=== PATIENT | male | born 1950 | race Caucasian/White ===

== ENCOUNTER 2019-05-02 11:24 | Inpatient (IN) | payer MEDICARE, BC ==
--- NOTE | 2019-05-02 11:47 | ED ---
HPI Chest Pain - HPI Summary HPI Summary: This patient is a 69 year old male presenting to [facility] with a chief complaint of chest tightness 1 hour ago. He states he had just worked out at the gym and he arrived home and started to shovel snow when he started to experience a squeezing pain in his chest. He reports nausea and skin diaphoresis. He states the pain is at his mid sternum Pt denies any fever, chills, erythema of eyes, sore throat, SOB, cough, abdominal pain, vomiting, dysuria, hematuria, myalgia, edema, rash, or dizziness. He states a Family Hx of DC in his father at 55 and 2 uncles younger than 55. He is concerned due to his family Hx. He rates his current pain 2/10 in severity. He states the pain does not radiate. He has a Hx of HTN and HLD. He states he was in [place] a week ago and states he had a GI bug up until a few days ago. His states he was walking slower on the treadmill today than usual. - History of Current Complaint Chief Complaint: EDChestPainROMI Time Seen by Provider: 05/02/19 11:43 Hx Obtained From: Patient Onset/Duration: Started Hours Ago Timing: Lasting Minutes Pain Intensity: 0 Character: Pressure/Squeezing Associated Signs and Symptoms: Positive: Nausea - Allergy/Home Medications Allergies/Adverse Reactions: Allergies Allergy/AdvReac Type Severity Reaction Status Date / Time No Known Allergies Allergy Verified 05/02/19 11:32 Home Medications: Home Medications Glucosam/Chondr/Collagn/Hyalur [Glucosamine & Chondroitin Cap] 1 each PO DAILY 05/02/19 [History Confirmed 05/02/19] Naproxen Sodium [Aleve] 220 mg PO DAILY PRN 05/02/19 [History Confirmed 05/02/19 ] PMH/Surg Hx/FS Hx/Imm Hx Endocrine/Hematology History: Denies: Hx Diabetes Cardiovascular History: Reports: Hx Hypercholesterolemia, Hx Hypertension - Immunization History Date of Tetanus Vaccine: 07/03/18 Infectious Disease History: No Infectious Disease History: Denies: Traveled Outside the [place] in Last 30 Days - Family History Known Family History: Positive: Cardiac Disease - Social History Alcohol Use: None Hx Substance Use: No Substance Use Type: Reports: None Hx Tobacco Use: No Smoking Status (MU): Unknown if Ever Smoked Review of Systems Positive: Skin Diaphoresis. Negative: Fever, Chills Negative: Erythema Negative: Sore Throat Positive: Chest Pain Negative: Shortness Of Breath, Cough Positive: Nausea. Negative: Abdominal Pain, Vomiting Negative: dysuria, hematuria Negative: Myalgia, Edema Negative: Rash Neurological: Other - Neg: Dizziness All Other Systems Reviewed And Are Negative: No Physical Exam - Summary Physical Exam Summary: Constitutional: Well-developed, Well-nourished, Alert. (-) Distressed Skin: Warm, Dry HENT: Normocephalic; Atraumatic Eyes: Conjunctiva normal Neck: Musculoskeletal ROM normal neck. (-) JVD, (-) Stridor, (-) Tracheal deviation Cardio: Rhythm regular, rate normal, Heart sounds normal; Intact distal pulses; Radial pulses are 2+ and symmetric. (-) Murmur Pulmonary/Chest wall: Effort normal. (-) Respiratory distress, (-) Wheezes, (-) Rales Abd: Soft, (-) tenderness, (-) Distension, (-) Guarding, (-) Rebound Musculoskeletal: (-) Edema Lymph: (-) Cervical adenopathy Neuro: Alert, Oriented x3 Psych: Mood and affect Normal Triage Information Reviewed: Yes Vital Signs On Initial Exam: Initial Vitals Temp Pulse Resp BP Pulse Ox 97.6 F 66 16 153/80 98 05/02/19 11:31 05/02/19 11:31 05/02/19 11:31 05/02/19 11:31 05/02/19 11:31 Vital Signs Reviewed: Yes Procedures - Sedation Patient Received Moderate/Deep Sedation with Procedure: No Diagnostics - Vital Signs Vital Signs Temp Pulse Resp BP Pulse Ox 05/02/19 11:31 97.6 F 66 16 153/80 98 - Laboratory Result Diagrams: 05/02/19 11:43 05/02/19 11:43 Lab Statement: Any lab studies that have been ordered have been reviewed, and results considered in the medical decision making process. - EKG 1128 Cardiac Rate: NL - 66 BPM EKG Rhythm: Sinus Rhythm Summary of EKG Findings: Inferior, septal and anterior Q-waves. ED Physician has reviewed and interpreted this report. Chest Pain Course/Dx - Course Course Of Treatment: This patient is a 69 year old male presenting to [facility] with a chief complaint of chest tightness. HEART Score calculated to be 7. Physical exam was unremarkable. Labs were unremarkable except for Creatinine of 1.42 H and Glucose of 137 H. EKG revealed Q-waves in the inferior, septal, and anterior leads. Dr. Cristina, Hospitalist, accepted the patient for admission observation overnight. This plan was discussed with the patient and he was agreeable with this plan. - Diagnoses Provider Diagnoses: Unstable angina Discharge ED - Sign-Out/Discharge Documenting (check all that apply): Patient Departure - Admission - Discharge Plan Condition: Stable Disposition: ADMITTED TO [facility] Referrals: Ishaan Tay MD [Primary Care Provider] - - Attestation Statements Document Initiated by Scribe: Yes Documenting Scribe: Tristan Guevara Provider For Whom Scribe is Documenting (Include Credential): Richy Hairston MD Scribe Attestation: Tristan Lozano, scribed for Richy Hairston MD on 05/02/19 at 1246. Status of Scribe Document: Ready
[2019-05-02] MEDS ORDERED: Nitroglycerin TAB 0.4 MG* 0.4 MG TAB SL ONE (11:54)
[2019-05-02] MEDS ORDERED: Aspirin TAB* 325 MG PO ONE (11:54)
[2019-05-02 11:58] LABS: ABS Basophils 0.1 10^3/ul (0-0.2); ABS Eosinophils 0.1 10^3/ul (0-0.6); ABS Lymphocytes 1.9 10^3/ul (1.0-4.8); ABS Monocytes 0.6 10^3/ul (0-0.8); ABS Neutrophils 3.3 10^3/ul (1.5-7.7); Hematocrit 44 % (42-52); Hemoglobin 15.2 g/dL (14.0-18.0); Lymphocyte % 32.5 %; Mean Corpuscular HGB Conc 34 g/dL (31-36); Mean Corpuscular Hemoglobin 30 pg (27-31); Mean Corpuscular Volume 88 fL (80-94); Mean Platelet Volume 8.5 fL (7.4-10.4); Platelet Count 223 10^3/uL (150-450); Red Blood Count 5.01 10^6 /uL (4.18-5.48); Red Cell Distribution Width 14 % (10-15); White Blood Count 5.9 10^3/uL (3.5-10.8)
[2019-05-02 12:09] LABS: Albumin 4.3 g/dL (3.2-5.2); Albumin/Globulin Ratio 1.6 (1-3); BUN/Creatinine Ratio 13.4 (8-20); Calcium 9.3 mg/dL (8.6-10.3); EGFR African American 59.5 (>60); EGFR Non-African American 49.1 (>60); Globulin 2.7 g/dL (2-4); Potassium 3.6 mmol/L (3.5-5.0); Total Bilirubin 0.7 mg/dL (0.2-1.0)
[2019-05-02] MEDS ORDERED: NS 0.9% 1000 ML** 1,000 ML IV ONE (12:24)
[2019-05-02] MEDS ORDERED: Morphine 4 MG/ML VIAL (1 ml) 4 MG/ML VIAL IV ONE (12:24)
[2019-05-02] MEDS ORDERED: Ondansetron INJ* 2 MG/ML VIAL IV ONE (12:24)
[2019-05-02] MEDS ORDERED: Ondansetron INJ* 2 MG/ML VIAL ONE (12:24)
[2019-05-02 12:33] LABS: INR 1.02 (0.82-1.09)
[2019-05-02] MEDS ORDERED: Aspirin 81 mg CHEW TAB* 81 MG TAB.CHEW PO ONE (13:00)
[2019-05-02] MEDS ORDERED: Atorvastatin* 80 MG TAB PO ONE (13:10)
[2019-05-02] MEDS ORDERED: Aspirin 81 mg CHEW TAB* 81 MG TAB.CHEW PO STA (13:43)
[2019-05-02] MEDS ORDERED: Al Hydrox/Mg Hydrox/Simet LIQ* 30 ML UDC PO ONE (13:47)
[2019-05-02] MEDS ORDERED: Metoprolol Tartrate TAB* 25 MG PO SCH ×2 (14:00→19:00)
[2019-05-02] MEDS ORDERED: Ondansetron INJ* 2 MG/ML VIAL IV PRN (14:00)
[2019-05-02 15:34] LABS: Troponin I 0.06 ng/mL (<0.03)
--- NOTE | 2019-05-02 16:43 | ECHO ---
*[facility]* [place] [address] Fax #: [phone] Transthoracic Echocardiogram Patient: Christopher Jorgensen : 1950 Study Date: 05/02/2019 Age: 69 Gender: M HR: 65 bpm Height: 72 in /182.9 cm BSA: 2.13 m^2 Weight: 194.6 lb /88.5 kg BMI: 26.4 kg/m^2 *Youth Coordinator: * Ginny Blanco [facility] *Referring Physician: * Paulo Cristina *Reading Physician: * Mando Dyer MD Indications: Chest Pain, unspecified. History: Positive family history of CAD. Risk factors: Hypertension. Dyslipidemia. Conclusions Summary: - Left ventricle: The cavity size is normal. Wall thickness is mildly increased. Systolic function is normal. The estimated ejection fraction is 60-65%. Wall motion is normal; there are no regional wall motion abnormalities. - Right ventricle: The cavity size is normal. Systolic function is normal. Systolic pressure is mildly increased. - Left atrium: The atrium is normal in size. - Ascending aorta: The ascending aorta is mildly dilated. - No significant valvular abnormalities noted. Recommendations: None prior for comparison at time of interpretation Study data: Transthoracic echocardiogram. Procedure: Transthoracic echocardiography was performed. Image quality was good. Complete 2D, spectral Doppler, and color flow Doppler. Location: Bedside. Patient status: Inpatient. Patient room number: 432. Rhythm: Normal sinus rhythm with PVC's. Findings Left ventricle: The cavity size is normal. Wall thickness is mildly increased. Systolic function is normal. The estimated ejection fraction is 60-65%. Wall motion is normal; there are no regional wall motion abnormalities. Left ventricular diastolic function parameters are indeterminate. Right ventricle: The cavity size is normal. Systolic function is normal. Systolic pressure is mildly increased. Left atrium: The atrium is normal in size. Right atrium: The atrium is normal in size. Mitral valve: The leaflets are mildly thickened. There is no evidence of stenosis. There is mild regurgitation. Aortic valve: The valve is trileaflet. The leaflets are mildly thickened. There is no evidence of stenosis. There is no significant regurgitation. Tricuspid valve: The leaflets are normal thickness. There is no evidence of stenosis. There is trace to mild regurgitation. Pulmonic valve: The leaflets are normal thickness. There is no evidence of stenosis. There is trace regurgitation. Aorta: Aortic root: The aortic root is appears normal. Ascending aorta: The ascending aorta is mildly dilated. Aortic arch: The aortic arch is appears normal. Pericardium: There is no significant pericardial effusion. Pulmonary arteries: The main pulmonary artery is normal-sized. Systolic pressure is mildly increased. Systemic veins: Inferior vena cava: The vessel is normal in size. There is (>= 50%) respiratory change in the IVC dimension. Measurements Left ventricle Value Ref Right atrium Value Ref NITA, LAX 4.5 cm 4.2 - SI dim, ES 4.7 cm 3.4 - 5.3 5.8 ML dim, ES, A4C 3.8 cm 2.6 - 4.4 ESD, LAX 3.1 cm 2.5 - Estimated RAP 3 mm Hg --------- 4.0 FS, LAX 31 % Aortic valve Value Ref PW, ED, LAX (H) 1.1 cm 0.6 - Orion diam, S 2.3 cm 2.0 - 3.2 1.0 Peak v, S 1.33 m/sec --------- FS 31 % VTI, S 29.5 cm --------- PW, ED (H) 1.1 cm 0.6 - Mean grad, S 3.5 mm Hg --------- 1.0 Peak grad, S 7.1 mm Hg --------- E', lat orion, TDI 10.0 cm/sec >=10.0 LVOT/AV, VTI ratio 0.76 --- ------ E/e', lat orion, TDI 11 -------- E', med orion, TDI 9.0 cm/sec >=7.0 Mitral valve Value Ref E/e', med orion, TDI 13 -------- Peak E 1.15 m/sec ------ --- E', avg, TDI 9.5 cm/sec -------- Peak A 1.04 m/sec ------ --- E/e', avg, TDI 12 <=14 Decel time 230 ms --- ------ Peak grad, D 5.3 mm Hg --------- LVOT Value Ref Peak E/A ratio 1.11 --------- Peak patria, S 1.05 m/sec -------- VTI, S 22.4 cm -------- Tricuspid valve Value Ref Peak grad, S 4 mm Hg -------- TR peak v (H) 2.91 m/sec <=2.8 Mean grad, S 2 mm Hg -------- Peak RV-RA grad, S 34 mm Hg --------- Ventricular septum Value Ref Aortic root Value Ref IVS, ED (H) 1.2 cm 0.6 - Root diam 3.3 cm <4.2 1.0 Ascending aorta Value Ref Right ventricle Value Ref AAo AP diam, S 3.7 cm --------- AW thickness, ED (H) 0.6 cm 0.1 - 0.5 Aortic arch Value Ref AW thickness, ES 0.6 cm -------- Arch diam 2.8 cm --------- NITA, LAX 3.8 cm -------- NITA minor ax, A4C (H) 3.8 cm 1.9 - Pulmonary artery Value Ref mid 3.5 Pressure, S 37.0 mm Hg --------- Pressure, S 37 mm Hg -------- Inferior vena cava Value Ref Left atrium Value Ref Diam 1.6 cm --------- LA ID 3.7 cm -------- ML dim, A4C 4.0 cm -------- SI dim, A4C 4.1 cm -------- Vol, ES, 2-p 46 ml -------- Vol/bsa, ES, 2-p 21 ml/m^2 16 - 34 Legend: (L) and (H) allan values outside specified reference range. Prepared and electronically signed by Mando Dyer MD 05/02/2019 16:42
--- NOTE | 2019-05-02 18:17 | HP ---
HISTORY AND PHYSICAL: DATE OF ADMISSION: 05/02/19 ADMITTING PROVIDER: Paulo Cristina MD PRIMARY CARE PROVIDER: Dr. Ishaan Tay. CHIEF COMPLAINT: Chest pressure, nausea, vomiting, shortness of breath. 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 He went to the gym for "the second time in his adult life" the morning of admission and did series of upper body exercises including abdominal twists, pectoral flexion, press, and rowing/lat machine." He then joined his for a short time on the treadmill, but walked at a slower than usual pace given fatigue at approximately 20 minutes per mile compared to his usual 17. He felt nauseous and sweaty on the ride home, then did some shoveling of snow, but quickly developed some tightness in his chest. This was around between 10:15 and 10:30 a.m. on morning of admission. They waited about 15 minutes, it was not getting better and in fact was getting a little bit worse. Sensation was about 3/10, felt like constriction in his lower chest with no radiation, but accompanied with shortness of breath. On car ride over to the emergency room, he vomited in a car. Here at [facility], his initial troponin was 0.0. He had an EKG, which showed some Q waves in III, aVF, V1, V2, V3, similar sort of distribution to his last known EKG in 2005. He got nitroglycerin sublingual once, but his blood pressures dropped to the low 100s and he got bradycardic to either the high 40s or low 50s and vomited again and vomited up the aspirin that he had been given. He was referred to the hospitalist service for admission given his HEART score of approximately 7, for ACS rule out. He still has about 2/10 discomfort, but says "markedly improved" from the 3/10 that was at its worse. The shortness of breath resolved in the last 30 minutes. Back in approximately 2005, he developed episode of chest pain and was eventually referred as an outpatient by his PCP at that time, Dr. Lr, to get a coronary catheterization at [facility] which was reportedly to his knowledge clean of any significant coronary artery disease. The pain back then was slightly sharper than it is now. He does have a known hiatal hernia and has pretty severe GERD if he is not on chronic PPI therapy - H2 blockers were not effective. PAST MEDICAL HISTORY: Hypertension; hyperlipidemia; GERD; at least moderate- sized hiatal hernia back in 2010; BPH; JELANI, not requiring CPAP, but uses a mouthguard. FAMILY HISTORY: Includes early cardiac deaths in his father at age 55, paternal uncle at age 52, another paternal uncle at age 46 and his paternal grandfather at less than age 60. His mother at age 80 of multiple myeloma. He has 5 sisters, all younger and healthy. He has 2 sons, age 34 and 36 also healthy. SOCIAL HISTORY: The patient is a former smoker between years 1965 and 1973, averaging about one and a half packs per day, so about 12 pack years. He is a frequent drinker of Scotch approximately 4 a day. No other drug use. 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 He desires to be a full code. His medical surrogate is his , also a veterinary surgeon, Snow Jorgensen. REVIEW OF SYSTEMS: A complete 14-point review of systems is negative except as per HPI. Denies any headache, current stomach discomfort or nausea, fevers, or chills. He does have a slight laceration at his left fifth finger, he says he is not exactly sure what happened there but it happened about 2 to 3 days ago. They recently returned from [place] flight and he had some diarrhea and stomach cramps for about 4 days total which resolved about 3 days ago. Denies any cough , fevers, or chills. PHYSICAL EXAMINATION GENERAL APPEARANCE: No acute distress. VITAL SIGNS: Temperature 97.6, pulse rate 60s to 70s, respiratory rate 13 to 28 , blood pressure initially 153/80, dropped down to 91/60 and is currently 139/ 78. HEENT: Normocephalic, atraumatic. Pupils are equal, round and reactive to light. Extraocular motions intact. No scleral icterus. LUNGS: Clear to auscultation bilaterally with no wheezing, rales, or rhonchi. CARDIOVASCULAR: Regular rate and rhythm. No murmurs, rubs, or gallops. ABDOMEN: Soft, nontender, nondistended. No organomegaly or guarding. EXTREMITIES: Warm, well perfused. No peripheral edema. NEURO: Cranial nerves II through XII intact. Alert and oriented x3. SKIN: No lesions, no rashes, other than 1-cm laceration in his left fifth finger with no drainage or erythema. DIAGNOSTIC STUDIES/LAB DATA: White count 5.9, hemoglobin 15.2, hematocrit 44, platelets 223. INR 1.02. Sodium 137, potassium 3.6, chloride 104, carbon dioxide 25, BUN 19, creatinine 1.42, glucose 137. Total bili 0.7, AST 21, ALT 25, alk phos 44. Troponin 0.00. D-dimer less than 200. Imaging: None. EKG demonstrated normal sinus rhythm; Q waves in II, aVF, V1 through V3; T-wave flattening in V1; left anterior fascicular block; GA is 215; QTc is 414; QRS is 112. No ST elevations or depressions. ASSESSMENT AND PLAN: Christopher Jorgensen is a 69-year-old male with past medical history of moderate hiatal hernia, hypertension, hyperlipidemia, gastroesophageal reflux disease, prediabetes with significant paternal family history of early coronary artery disease, presenting after initiation of upper body and cardiovascular workout at a gym for only second time in his adult life with substernal pressure, shortness of breath and some diaphoresis and no radiation. Initial troponin is 0.0. Given his HEART score of 7, he will be admitted to the hospital for further evaluation, acute coronary syndrome rule out. I am getting echocardiogram. Stress test is likely in the morning depending on clinical course. I am starting him on a low dose of beta-sarah, metoprolol tartrate 12.5 mg p.o. q.12 hours given his reported bradycardia with nitroglycerin which will be avoided. He is relatively comfortable appearing at the moment. I am also going to give him atorvastatin 80 mg now and in the morning, aspirin 324 mg p.o. again repeated now because he says most likely he vomited it up initially and also the 81 mg he took at home was vomited up and continue 81 mg daily tomorrow. I will give him a GI cocktail with aluminum hydroxide, magnesium hydroxide and simethicone along with continuing his PPI tomorrow, Protonix 40 mg p.o. daily. I will put him on telemetry. I will keep him n.p.o. except for sips and meds for now. His last LDL was 92 with HDL of 65 back on 03/14/19. His A1c was 6.1 on 03/14/19. For his hypertension, I am holding his hydrochlorothiazide 12.5 and amlodipine 10 mg p.o. daily for now. Could consider amlodipine restart tomorrow. He did initially get 1 L normal saline bolus after he was hypotensive in the ED. Along with Zofran, we will continue Zofran p.r.n. He is full code. Medical surrogate is his , Snow Jorgensen. [id number]/[facility] #: [id number] MTDArelis
[2019-05-02 18:40] LABS: Troponin I 1.16 ng/mL (<0.03)
[2019-05-02] MEDS ORDERED: Heparin VIAL(*) 5000 UNITS/ML VIAL (FIVE THOUSAND) IV SCH (19:30)
[2019-05-02] MEDS ORDERED: Heparin DRIP 25,000 UNITS(*) 25,000 UNITS/500 ML BAG IV SCH (19:30)
[2019-05-02 20:59] LABS: Magnesium 2.1 mg/dL (1.9-2.7)
[2019-05-02 21:06] LABS: Troponin I 2.74 ng/mL (<0.03)
[2019-05-02] MEDS: Metoprolol Tartrate TAB* 25 MG PO SCH (23:28)
[2019-05-03] MEDS ORDERED: Nitro 2% OINT* (Nitroglycerin) 1 INCH/PAK PAK TOPICAL ONE (00:46)
[2019-05-03] MEDS ORDERED: Potassium Chloride* LIQUID 20 MEQ/15 ML UDC PO ONE (00:48)
[2019-05-03 01:51] LABS: Troponin I 6.04 ng/mL (<0.03)
[2019-05-03 05:25] LABS: ABS Basophils 0.1 10^3/ul (0-0.2); ABS Eosinophils 0.1 10^3/ul (0-0.6); ABS Lymphocytes 1.8 10^3/ul (1.0-4.8); ABS Monocytes 0.8 10^3/ul (0-0.8); ABS Neutrophils 5.6 10^3/ul (1.5-7.7); Eosinophil % 0.9 %; Hematocrit 43 % (42-52); Hemoglobin 14.7 g/dL (14.0-18.0); Lymphocyte % 21.9 %; Mean Corpuscular HGB Conc 34 g/dL (31-36); Mean Corpuscular Hemoglobin 30 pg (27-31); Mean Corpuscular Volume 89 fL (80-94); Mean Platelet Volume 8.5 fL (7.4-10.4); Nucleated Red Blood Cells % 0.1; Platelet Count 225 10^3/uL (150-450); Red Blood Count 4.86 10^6 /uL (4.18-5.48); Red Cell Distribution Width 14 % (10-15); White Blood Count 8.4 10^3/uL (3.5-10.8)
[2019-05-03 05:45] LABS: BUN/Creatinine Ratio 11.3 (8-20); Calcium 8.9 mg/dL (8.6-10.3); EGFR Non-African American 49.5 (>60); Potassium 3.7 mmol/L (3.5-5.0)
[2019-05-03 05:56] LABS: Troponin I 9.97 ng/mL (<0.03)
[2019-05-03] MEDS ORDERED: Nitro Patch/OINT Remove TOPICAL ONE (06:30)
[2019-05-03] MEDS ORDERED: Ticagrelor* 90 MG TAB PO STA (07:12)
[2019-05-03] MEDS ORDERED: NS 0.9% 1000 ML** 1,000 ML IV SCH (07:45)
[2019-05-03] MEDS: Metoprolol Tartrate TAB* 25 MG PO SCH (08:22)
--- NOTE | 2019-05-03 08:40 | CONSULT ---
Subjective Date of Service: 05/03/19 Interval History: Admission Date: 05/02/19 Consult date 05/03/2019 Service: Hospitalist PCP Dr. Tay CC: chest pain Reason for consult: Type 1 VA, NSVT HPI Dr. 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 He had chest pain 10 or 12 years ago with subsequent cardiac catheterization at [facility] was told no issues. I do not have that report. He has had no chest pain since then. After exercise and now shoveling yesterday he developed nausea, sweating, chest discomfort and later vomiting. He had a hypotensive and bradycardic response to SL NTG. He received treatment for ACS yesterday and is now pain free. He had a 23 beat episodes of NSVT overnight. He a chronically mildly elevated creatinine. 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 Family hx: early cardiac deaths in his father at age 55, paternal uncle at age 52, another paternal uncle at age 46 and his paternal grandfather at less than age 60. SOCIAL HISTORY: The patient is a former smoker between years 1965 and 1973, averaging about one and a half packs per day. Drinks wine and scotch about 4 a day. No drug use. 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 He desires to be a full code. Medications Active Medications: Amlodipine Besylate (Norvasc Tab*) 10 mg PO DAILY [facility] Last Admin: 05/03/19 08:22 Dose: 10 mg Aspirin (Aspirin 81 Mg Chew Tab*) 81 mg PO DAILY [facility] Last Admin: 05/03/19 08:22 Dose: 81 mg Atorvastatin Calcium (Lipitor*) 80 mg PO 1700 [facility] Heparin Sodium (Porcine) (Heparin Vial(*)) 0 units IV .PER PROTOCOL [facility] Last Admin: 05/02/19 21:08 Dose: 4,000 units Heparin Sodium/Dextrose (Heparin Drip 25,000 Units(*)) 25,000 units in 500 mls @ 0 mls/hr IV PER RATE [facility]; Protocol Last Admin: 05/02/19 21:08 Dose: 20 mls/hr Sodium Chloride (Ns 0.9% 1000 Ml) 1,000 mls @ 100 mls/hr IV PER RATE [facility] Metoprolol Tartrate (Lopressor Tab*) 25 mg PO 0730,1530,2330 [facility] Last Admin: 05/03/19 08:22 Dose: 25 mg Ondansetron HCl (Zofran Inj*) 4 mg IV Q6H PRN PRN Reason: NAUSEA Last Admin: 05/03/19 01:26 Dose: 4 mg Pantoprazole Sodium (Protonix Tab*) 40 mg PO DAILY [facility] Last Admin: 05/03/19 08:23 Dose: 40 mg Tamsulosin HCl (Flomax Cap*) 0.4 mg PO DAILY [facility] Home Medications: Omeprazole CAP (NF) [PriLOSEC CAP*] 20 mg PO DAILY 11/12/14 [History Confirmed 05/02/19] amLODIPine TAB* [Norvasc TAB*] 10 mg PO DAILY 11/12/14 [History Confirmed ] Atorvastatin* [Lipitor*] 20 mg PO BEDTIME 07/03/18 [History Confirmed 05/02/19] Hydrochlorothiazide TAB* [Hydrodiuril TAB*] 12.5 mg PO DAILY 07/03/18 [History Confirmed 05/02/19] Tamsulosin CAP* [Flomax CAP*] 0.4 mg PO DAILY 07/03/18 [History Confirmed ] Glucosam/Chondr/Collagn/Hyalur [Glucosamine & Chondroitin Cap] 1 each PO DAILY 05/02/19 [History Confirmed 05/02/19] Naproxen Sodium [Aleve] 220 mg PO DAILY PRN 05/02/19 [History Confirmed 05/02/19 ] Review of Systems - Measurements Intake and Output: Intake and Output Last 24 Hours 05/01/19 05/02/19 05/03/19 05/04/19 06:59 06:59 06:59 06:59 Intake Total 1189 Output Total 0 Balance 1189 Weight 195 lb 9.6 oz Intake: IV Fluids 1000 Heparin 189 Oral 0 Output: Urine 0 - Review of Systems Constitutional Symptoms: Negative: Weight Gain, Weight Loss, Weakness, Fatigue, Fever Dermatology: Negative: Rash, Skin Lesions HEENT: Negative: Change in Hearing, Vertigo Eyes: Negative: Change in Vision, Double Vision Thyroid: Negative: Cold Intolerance, Heat Intolerance, Palpitations, Weight Loss, Weight Gain Pulmonary: Negative: Respiratory Distress, Shortness of Breath Cardiology: Positive: Chest Pain Negative: Edema, Faintness, Syncope, Claudication, Paroxysmal Nocturnal Dyspnea Gastroenterology: Positive: Vomiting Negative: Blood in Stools, Haematemesis, Melena Genital - Urinary: Negative: Dysuria, Hematuria Musculoskeletal: Negative: Joint Pain, Joint Stiffness Endocrinology: Positive: Obesity Negative: Polydipsia, Polyuria Hematologic/Lymphatic: Negative: Use of Anticoagulant, Use of Antiplatelet Drugs Neurology: Negative: Hx of Stroke\TIA, Hx Seizures Psychiatry: Negative: Unusual Anxiety, Suicidal Ideation Allergic/Immunologic: Negative: Hx Anaphylaxis, Hx Angioedema, Hx HIV, Immunocompromise Review of Systems Statement: All other review of systems negative, unless stated above. Objective Vital Signs: Temp Pulse Resp BP Pulse Ox 97.9 F 62 14 128/68 94 05/03/19 07:43 05/03/19 07:43 05/03/19 07:43 05/03/19 07:43 05/03/19 07:43 Oxygen Devices in Use Now: None Appearance: nad, pleasant Ears/Nose/Mouth/Throat: Clear Oropharnyx Neck: NL Appearance and Movements; NL JVP, Trachea Midline Respiratory: Symmetrical Chest Expansion and Respiratory Effort, Clear to Auscultation Cardiovascular: NL Sounds; No Murmurs; No JVD, RRR, No Edema Abdominal: NL Sounds; No Tenderness; No Distention Extremities: No Edema Skin: No Rash or Ulcers Neurological: Alert and Oriented x 3 Laboratory Results: 05/03/19 05:10 05/03/19 05:10 INR (Anticoag Therapy) 1.02 (0.82-1.09) 05/02/19 11:43 APTT 75.9 seconds (26.0-38.0) H 05/03/19 03:40 Total Bilirubin 0.70 mg/dL (0.2-1.0) 05/02/19 11:43 AST 21 U/L (13-39) 05/02/19 11:43 ALT 25 U/L (7-52) 05/02/19 11:43 Alkaline Phosphatase 44 U/L (34-104) 05/02/19 11:43 Total Protein 7.0 g/dL (6.4-8.9) 05/02/19 11:43 Albumin 4.3 g/dL (3.2-5.2) 05/02/19 11:43 Globulin 2.7 g/dL (2-4) 05/02/19 11:43 Albumin/Globulin Ratio 1.6 (1-3) 05/02/19 11:43 05/02/19 05/02/19 05/02/19 11:43 14:48 18:07 Troponin I 0.00 0.06 H* 1.16 H* 05/02/19 05/03/19 05/03/19 20:35 00:54 05:10 Troponin I 2.74 H* 6.04 H* 9.97 H* 03/21/2019 [id number] 6.1 tri 86, tchol 174, hdl 65, ldl 92 Diagnostic Imaging: Transthoracic Echocardiogram Study Date: 05/02/2019 Summary: - Left ventricle: The cavity size is normal. Wall thickness is mildly increased. Systolic function is normal. The estimated ejection fraction is 60-65 %. Wall motion is normal; there are no regional wall motion abnormalities. - Right ventricle: The cavity size is normal. Systolic function is normal. Systolic pressure is mildly increased. - Left atrium: The atrium is normal in size. - Ascending aorta: The ascending aorta is mildly dilated. - No significant valvular abnormalities noted. EKG Data: ekg 05/02/2019 NSR, poor r wave progression LAD 05/03/2019 similar to admission, some subtle inferior st segemnt changes Assessment/Plan Dr. Jorgensen is a 69 year old man admitted with acute type 1 VA, now pain free with normal LVEF no CHF or hemodynamic instability. Patient had NSVT on telemetry - Continue medications as ordered above except add brillinta 180 mg po x 1 and start IVF (ordered) - Cardiac catheterization with intent for revascularization indicated and recommended. Risks, benefits and alternatives discussed and patient wishes to proceed. Discussed with Dr. Vega. Thank you for allowing me to participate in the cardiovascular care of this patient. Please do not hesitate to contact me with questions or concerns.
[2019-05-03] MEDS ORDERED: Heparin(*) 1000 UNIT/ML 10 ML VIAL CATH LAB IV ONE (08:44)
[2019-05-03] MEDS ORDERED: fentaNYL* 50 MCG/ML 2 ML VIAL (100 MCG VIAL) ONE (08:44)
[2019-05-03] MEDS ORDERED: Midazolam* 1 MG/ML 5 ML VIAL (5 MG) ONE (08:44)
[2019-05-03] MEDS ORDERED: VERAPAMIL 2.5 MG/ML 2 ML VIAL ** 5 mg/2 ml ONE (08:44)
[2019-05-03] MEDS ORDERED: Heparin 2 UNITS/ML IVPREMIX* 2,000 ML IV ONE (08:45)
[2019-05-03] MEDS ORDERED: Lidocaine 1% INJ* 10 MG/ML 30 ML SDV ONE (08:45)
[2019-05-03] MEDS ORDERED: nitroGLYCERIN DRIP* 25,000 MCG/250 ML BTL ONE (08:45)
[2019-05-03] MEDS ORDERED: Iohexol 350 (CONTRAST) 200 ML MDV IV ONE (08:46)
[2019-05-03] MEDS ORDERED: amLODIPine TAB* 5 MG PO SCH (09:00)
[2019-05-03] MEDS ORDERED: Pantoprazole TAB * 40 MG TAB PO SCH (09:00)
[2019-05-03] MEDS ORDERED: Iodixanol 320 (CONTRAST) 100 ML SDV ONE (09:00)
[2019-05-03] MEDS ORDERED: Aspirin 81 mg CHEW TAB* 81 MG TAB.CHEW PO SCH (09:00)
[2019-05-03] MEDS ORDERED: Tamsulosin CAP* 0.4 MG PO SCH (09:00)
--- NOTE | 2019-05-03 09:10 | PN ---
Subjective Date of Service: 05/03/19 Interval History: pt has had no CP since admission. An episode of 23 beats of V. tach noted. Going to cath in a few minutes Objective Active Medications: Amlodipine Besylate (Norvasc Tab*) 10 mg PO DAILY [facility] Last Admin: 05/03/19 08:22 Dose: 10 mg Aspirin (Aspirin 81 Mg Chew Tab*) 81 mg PO DAILY [facility] Last Admin: 05/03/19 08:22 Dose: 81 mg Atorvastatin Calcium (Lipitor*) 80 mg PO 1700 [facility] Heparin Sodium (Porcine) (Heparin Vial(*)) 0 units IV .PER PROTOCOL [facility] Last Admin: 05/02/19 21:08 Dose: 4,000 units Heparin Sodium/Dextrose (Heparin Drip 25,000 Units(*)) 25,000 units in 500 mls @ 0 mls/hr IV PER RATE [facility]; Protocol Last Admin: 05/02/19 21:08 Dose: 20 mls/hr Sodium Chloride (Ns 0.9% 1000 Ml) 1,000 mls @ 100 mls/hr IV PER RATE [facility] Metoprolol Tartrate (Lopressor Tab*) 25 mg PO 0730,1530,2330 [facility] Last Admin: 05/03/19 08:22 Dose: 25 mg Ondansetron HCl (Zofran Inj*) 4 mg IV Q6H PRN PRN Reason: NAUSEA Last Admin: 05/03/19 01:26 Dose: 4 mg Pantoprazole Sodium (Protonix Tab*) 40 mg PO DAILY [facility] Last Admin: 05/03/19 08:23 Dose: 40 mg Tamsulosin HCl (Flomax Cap*) 0.4 mg PO DAILY [facility] Vital Signs - 8 hr 05/03/19 05/03/19 05/03/19 02:19 03:12 07:43 Temperature 98.5 F 97.2 F 97.9 F Pulse Rate 62 63 62 Respiratory 16 16 14 Rate Blood Pressure 132/75 136/77 128/68 (mmHg) O2 Sat by Pulse 96 96 94 Oximetry Oxygen Devices in Use Now: None Appearance: 69 yo m in nAD, AAOx3 Eyes: No Scleral Icterus, PERRLA Ears/Nose/Mouth/Throat: NL Teeth, Lips, Gums, Mucous Membranes Moist Neck: NL Appearance and Movements; NL JVP, Trachea Midline Respiratory: Symmetrical Chest Expansion and Respiratory Effort, Clear to Auscultation Cardiovascular: NL Sounds; No Murmurs; No JVD, RRR Abdominal: NL Sounds; No Tenderness; No Distention Lymphatic: No Cervical Adenopathy Extremities: No Edema, No Clubbing, Cyanosis Skin: No Rash or Ulcers, No Nodules or Sclerosis Neurological: Alert and Oriented x 3, NL Muscle Strength and Tone Result Diagrams: 05/03/19 05:10 05/03/19 05:10 Assess/Plan/Problems-Billing Assessment: 69 yo M with h/o HTN, prediabetes and CKD stage 3 with NSTEMI - Patient Problems (1) NSTEMI (non-ST elevated myocardial infarction) Comment: for cath this aM Cont ASA/Brilinta, heparin gtt, BB (2) HTN (hypertension) Comment: cont with Norvasc and lopressor (3) DVT prophylaxis Comment: heparin gtt (4) CKD (chronic kidney disease) stage 3, GFR 30-59 ml/min Comment: creat at baseline Status and Disposition: inpatient
[2019-05-03 09:27] LABS: HDL Cholesterol 51.4 mg/dL
[2019-05-03 11:10] VITALS: BP 132/78
--- NOTE | 2019-05-03 12:11 | CATH ---
CC: Dr. Ishaan Tay III; Dr. Mando Dyer, [facility]; Dr. Mando Collier, [facility], [facility] * DATE OF PROCEDURE: 05/03/2019. INDICATION FOR PROCEDURE: Asked by Dr. 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 PROCEDURE PERFORMED: The procedure was coronary arteriography. (Of note, the patient had an echocardiogram already performed to assess left ventricular systolic function and has a known history of renal insufficiency.) CONSENT: The patient was interviewed and examined on the floor of the hospital where the risks and benefits were explained. He and his understood them and wished to proceed. APPROACH UTILIZED: The right radial artery was assessed under ultrasound on the floor of the hospital and found to be acceptable for an approach and as such this was the site utilized for the procedure. PRECARDIAC CATHETERIZATION LABORATORY RESULTS: Hemoglobin and hematocrit of 14.7 and 43 with a platelet count of 225,000. BUN 16, creatinine 1.4, sodium 137, potassium 3.7, chloride 104, bicarb 26. Last troponin was 9.97. EQUIPMENT UTILIZED: 1. Right radial artery sheath - a 6 Maldivian Glidesheath Slender. 2. Diagnostic guidewire: A Cook Palma Curved 260 length guidewire. 3. Diagnostic coronary catheters - included a FL4 curve left coronary catheter and an RF4 curve right coronary catheter. Of note, a multipurpose one curve catheter was utilized to cannulate the ectopic circumflex off of the right coronary artery. MEDICATIONS GIVEN DURING THE PROCEDURE: Included, a radial artery cocktail of 100 mcg of Nitroglycerin, 3 mg of Verapamil, and a Heparin bolus of 3,000 units. Additional 3,000 units of Heparin were given intravenously during the procedure, guided by ACT results which were done throughout the procedure, including at the end of the case. The patient had already received Brilinta 180 mg on the floor of the hospital and his 81 mg aspirin dose this morning. PROCEDURE: The patient was brought to the cardiovascular laboratory where a formal time-out was performed. He was prepped and draped in a sterile fashion and under ultrasound guidance, the right radial artery was cannulated and a sheath was placed. Coronary arteriography was performed, eventually utilizing a 5-Maldivian FL4 curve catheter for the left coronary artery and an FR4 curve 5- Maldivian catheter for the right coronary artery. A 5-Maldivian multipurpose one curve catheter was utilized to cannulate the circumflex. The ectopic take off of the circumflex from the right coronary artery. Following this, the catheters were removed and the sheath was removed and hemostasis was obtained with a Vasc Band. The reverse Barbeau was josafat Breaux. RESULTS: CORONARY ARTERIOGRAPHY: A. Left coronary artery: 1. Left main - somewhat long in nature suggesting possible ectopic circumflex. There was calcification seen in the mid segment of the left main with luminal reduction of approximately 25 to 30 percent. The first diagonal branch was posterior directed and was noted to have an ectopic critical 85 to 90 percent lesion with HENOK III flow. Past this point, there was the first septal grain wafer machine operator followed by a hazy area after which was an aneurysmal area in the LAD. The haze area appeared in several views to have a narrowing of approximately 35 percent. After the haze area, there was what appeared to be a critically 85 to 90 percent blockage involving a medial vessel which parallel the continuation of the LAD. It is unclear whether the medial vessel is intramyocardial. That medial vessel supplied a first septal grain wafer machine operator and other septal perforators. There was diffuse disease with a 70 percent blockage noted proximally. The continuation of the more lateral branch supplied multiple diagonal branches, the first of which had a 70 to 75 percent ostial narrowing. The second one had no significant lesion, but in the continuation of the vessel past that point, there was an area of 70 percent obstruction noted. B. Right coronary artery - a dominant vessel supplying multiple acute marginal branches, a large PDA, and a large posterior left ventricular branch. There were mild luminal irregularities noted and just prior to turning on to the inferior surface of the heart was a mild narrowing that appeared to be 30 to 35 percent. The mid portion of the posterior descending artery had what appeared to be a 35 to 40 percent obstruction. The posterior left ventricular branch did not seem to have any significant narrowing. C. Ectopic takeoff of circumflex from the right coronary artery. The circumflex took off from the right coronary artery either at the cusp or at the very beginning portion of the right coronary artery. There was subtotal occlusion of this vessel with thrombus present. Past this area, there was HENOK I to II flow noted extending across the posterior wall. (Of note, there appeared to be faint collateralization from the left system developing to the circumflex obtuse marginal branch noted, particularly in the shallow JAMAICAN caudal projection.) OVERALL ASSESSMENT: Significant multivessel coronary artery disease involving the LAD system as well as the ectopic circumflex as described above. Given the aneurysmal dilatation of the LAD, the size mismatch, the diffuse disease in multiple areas , and the bifurcating lesion, I would think open heart surgery with bypass to both the parallel vessels as well as the first diagonal branch and probably the second diagonal branch and third diagonal branch and circumflex obtuse marginal branch would provide complete revascularization. These results were discussed with Dr. Mando Dyer who then reportedly placed a phone call to Dr. Mando Collier as the family preference was to go to [facility] if any advanced therapy was needed. Per Dr. Dyer' s request, we will continue the Heparin therapy on the patient. It should be noted that the patient did get 180 mg of Brilinta orally prior to the cardiac catheterization as ordered by Dr. Dyer. [id number]/[facility] #: [id number] [facility]
--- NOTE | 2019-05-03 12:20 | TRS ---
CC: Dr. Mando Collier from [facility]; Dr. Vega; Dr. Mando Dyer; Dr. Tay* TRANSFER SUMMARY: DATE OF ADMISSION: 05/02/19 DATE OF TRANSFER: 05/03/19 PRIMARY CARE PROVIDER: Dr. Tay. CONDITION AT TRANSFER: Stable. DISPOSITION AT DISCHARGE: The patient is being transferred to [facility] for evaluation for coronary artery bypass. TRANSFER DIAGNOSIS: Non-ST elevation myocardial infarction with diffuse left anterior descending disease, likely need of bypass. SECONDARY DIAGNOSES: 1. Hypertension. 2. Hyperlipidemia. 3. Gastroesophageal reflux disease. 4. History of hiatal hernia. 5. Benign prostatic hyperplasia. 6. Obstructive sleep apnea, not on CPAP, using mouthguard. 7. Chronic kidney disease, stage 3 with creatinine of 1.4 at baseline. MEDICATIONS AT TRANSFER: Include: 1. Normal saline at 100 mL an hour. 2. Nitroglycerin 0.4 mg sublingually on a p.r.n. basis for chest pain to use maximum 3 tablets and to keep systolic blood pressure above 100. PROCEDURES DURING THE HOSPITAL STAY: Include cardiac catheterization done on by Dr. Vega. From the verbal report I received from Dr. 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 The patient also has ectopic circumflex artery rising of RCA cusp that is subtotally occluded. LABORATORY DATA DURING THE HOSPITAL STAY: Included on , white blood cell count of 8.4, hemoglobin 14.7, hematocrit 43, and platelets 225. Sodium was 136, potassium 3.7, chloride 104, carbon dioxide 29, BUN 16, creatinine 1.41. The patient's troponin last was obtained at 5 a.m. on was 9.9. The patient's lipid profile shows triglycerides of 65, cholesterol total of 116, LDL of 52, and HDL of 51. The transthoracic echocardiogram obtained on 05/03/19 showed EF of 60% to 65% with wall thickness mildly increased with no regional wall abnormalities and with no significant valvular abnormalities noted. The ascending aorta was mildly dilated. CONSULTATIONS DURING THE HOSPITAL STAY: Included Dr. Dyer from Cardiology and Dr. Vega from Interventional Cardiology. 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 There were no significant EKG changes, but he was noted to have troponin rising throughout his hospital stay up to 9 on . Due to that his cardiac catheterization was performed and showed diffuse disease of LAD. Dr. Vega recommended for the patient to be transferred to [facility] and Dr. Collier was the doctor who kindly accepted the patient for transfer. Currently we are in the process of transfer of this patient to [facility]. Physical exam at the time of transfer, please see the ED progress note. Please note that this is a short summary of the patient's hospitalization. Please refer to further medical records for details. [id number]/[facility] #: [id number] ADDENDUM TO TRANSFER SUMMARY: ADDENDUM: Please note that the patient also is being transferred on heparin drip and his heparin drip is going to be at 800 units per hour during his transfer. [id number]/[facility] #: [id number] [facility]
[2019-05-03] MEDS ORDERED: Atorvastatin* 80 MG TAB PO SCH (17:00)
--- NOTE | 2019-05-03 19:55 | TRS ---
TRANSFER SUMMARY: ADDENDUM: Please note that the patient also is being transferred on heparin drip and his heparin drip is going to be at 800 units per hour during his transfer. [id number]/[facility] #: [id number] [facility]
== END 2019-05-03 12:02 | disposition short-term general hospital (02) | DRG 281 ==
LOC: ED 11:24 → MEDTELE 13:09 → OBSVTOIN 05-03 10:00
PROVIDERS: ADMIT Internal Medicine; ATTEND Internal Medicine
PROC: B2111ZZ Fluoroscopy of Multiple Coronary Arteries using Low Osmolar Contrast (ICD-10-PCS; principal; 2019-05-03 09:00)
DX: I21.4 Non-ST elevation (NSTEMI) myocardial infarction (principal); I47.2 Ventricular tachycardia; E78.00 Pure hypercholesterolemia, unspecified; E78.5 Hyperlipidemia, unspecified; I25.41 Coronary artery aneurysm; N40.0 Benign prostatic hyperplasia without lower urinary tract symptoms; G47.33 Obstructive sleep apnea (adult) (pediatric); K44.9 Diaphragmatic hernia without obstruction or gangrene; R00.1 Bradycardia, unspecified; I12.9 Hypertensive chronic kidney disease with stage 1 through stage 4 chronic kidney disease, or unspecified chronic kidney disease; N18.3 Chronic kidney disease, stage 3 (moderate); I25.10 Atherosclerotic heart disease of native coronary artery without angina pectoris; Z87.891 Personal history of nicotine dependence
CPT/HCPCS: 36415; 76937; 80048; 80053; 80061; 83735; 84484; 85025; 85347; 85379; 85610; 85730; 93005; 93306; 93454; 96374; 96375; 99284; A9270-GY; G0378; J1644; J2250; J2405; J3010

== ENCOUNTER 2019-07-07 10:03 | Observation (INO) | payer MEDICARE, BC ==
--- NOTE | 2019-07-07 10:15 | ED ---
Syncope/Near Syncope - HPI Summary HPI Summary: 69 y/o male presented to [facility] by [facility] after an episode of syncope this morning in [facility]. Pt was standing during a service and began feeling hot, lightheaded, and dizzy. LOC for 3 separate episodes of about 10 seconds in which he was unresponsive, bradycardic, and appeared ashen. Afterward pt felt nauseous and dry heaved; no CP or SOB. Pt had a similar episode yesterday in which he nearly passed out with lower than normal BP. His BP is chronically high (150-170). In the last 4-5 days he has had more respiratory sx and reported lower energy as well as cold sx. He also felt dizzy at a basketball game 2 days ago. Pt has a sextouple bypass on 05/06/19 and since surgery has had HR 50-60bpm. He had a stress test on 06/30/19 and has a follow-up on . Pt reports taking dextromethorphan and metoprolol. No hx blood clots, DM, or smoking. Pt notes he feels normal when exercising and notes he becomed severely bradycardic in response to NTG. - History Of Current Complaint Time Seen by Provider: 07/07/19 10:14 Hx Obtained From: Patient, Family/Loan Review Officer, EMS Onset/Duration: Sudden Onset, Resolved Timing: Intermittent Episode Lasting - 10s Context: Witnessed Activity At Onset: At Rest Associated Signs And Symptoms: Dizzy, Lightheadedness, Vomiting - dry heaving, Other - feeling hot Frequency: Episodes x___ - 3, Episodes Lasting ____ (in Mins/Days/Weeks/Years) - 10s - Allergies/Home Medications Allergies/Adverse Reactions: Allergies Allergy/AdvReac Type Severity Reaction Status Date / Time nitroglycerin Allergy See Comment Verified 07/07/19 10:14 Home Medications: Home Medications Omeprazole CAP (NF) [PriLOSEC CAP*] 20 mg PO DAILY 11/12/14 [History Confirmed 07/07/19] Atorvastatin* [Lipitor*] 80 mg PO BEDTIME 07/03/18 [History Confirmed 07/07/19] Hydrochlorothiazide TAB* [Hydrodiuril TAB*] 12.5 mg PO DAILY 07/03/18 [History Confirmed 07/07/19] Tamsulosin CAP* [Flomax CAP*] 0.4 mg PO DAILY 07/03/18 [History Confirmed ] Glucosam/Chondr/Collagn/Hyalur [Glucosamine & Chondroitin Cap] 1 each PO BID [History Confirmed 07/07/19] Aspirin 81 mg PO DAILY 07/07/19 [History Confirmed 07/07/19] Lisinopril TAB* [Prinivil TAB 5 MG*] 5 mg PO DAILY 07/07/19 [History Confirmed 07/07/19] Metoprolol Tartrate [Lopressor] 25 mg PO BID 07/07/19 [History Confirmed ] PMH/Surg Hx/FS Hx/Imm Hx Endocrine/Hematology History: Denies: Hx Diabetes Cardiovascular History: Reports: Hx Hypercholesterolemia, Hx Hypertension Sensory History: Reports: Hx Contacts or Glasses Denies: Hx Hearing Aid Opthamlomology History: Reports: Hx Contacts or Glasses Neurological History: Denies: Hx Seizures, Hx Transient Ischemic Attacks (TIA) - Immunization History Date of Tetanus Vaccine: 07/03/18 - Family History Known Family History: Positive: Cardiac Disease - Social History Alcohol Use: Rare Hx Substance Use: No Substance Use Type: Reports: None Hx Tobacco Use: No Smoking Status (MU): Unknown if Ever Smoked Review of Systems Positive: Other - bradycardic. Negative: Chest Pain Negative: Shortness Of Breath Positive: Vomiting - dry heaving, Nausea Positive: Other - ashen during episode Neurological/Mental Status: Other - dizziness, lightheadedness Positive: Syncope All Other Systems Reviewed And Are Negative: Yes Physical Exam - Summary Physical Exam Summary: Constitutional: Well-developed, Well-nourished, Alert. (-) Distressed Skin: Warm, Dry HENT: Normocephalic; Atraumatic Eyes: Conjunctiva normal Neck: Musculoskeletal ROM normal neck. (-) JVD, (-) Stridor, (-) Tracheal deviation Cardio: Rhythm regular, bradycardic, Heart sounds normal; Intact distal pulses; The pedal pulses are 2+ and symmetric. Radial pulses are 2+ and symmetric. (-) Murmur Pulmonary/Chest wall: Effort normal. (-) Respiratory distress, (-) Wheezes, (-) Rales Abd: Soft, (-) tenderness, (-) Distension, (-) Guarding, (-) Rebound Musculoskeletal: (-) Edema Lymph: (-) Cervical adenopathy Neuro: Alert, Oriented x3 Psych: Mood and affect Normal Triage Information Reviewed: Yes Vital Signs Reviewed: Yes Procedures - Sedation Patient Received Moderate/Deep Sedation with Procedure: No Diagnostics - Laboratory Result Diagrams: 07/07/19 10:32 07/07/19 10:32 Lab Statement: Any lab studies that have been ordered have been reviewed, and results considered in the medical decision making process. - Radiology cxr Radiology Interpretation Completed By: Radiologist Summary of Radiographic Findings: IMPRESSION: NO ACTIVE CARDIOPULMONARY DISEASE. This report was reviewed by Dr. Pelletier. - EKG 1010 Cardiac Rate: Bradycardia EKG Rhythm: Sinus Bradycardia Summary of EKG Findings: EKG at 1010 shows sinus bradycardia at 50bpm. T-wave inversions in avL. This EKG was reviewed and interpreted by Dr. Pelletier. Course/Dx Course Of Treatment: 69 y/o male presented to [facility] by [facility] after an episode of syncope this morning in [facility]. Pt was standing during a service and began feeling hot, lightheaded, and dizzy. LOC for 3 separate episodes of about 10 seconds in which he was unresponsive, bradycardic, and appeared ashen. Afterward pt felt nauseous and dry heaved; no CP or SOB. Exam showed bradycardia. Bloodwork showed BUN H, creatinine H, and glucose H. EKG at 1010 shows sinus bradycardia at 50bpm. T-wave inversions in avL. X-ray chest showed NO ACTIVE CARDIOPULMONARY DISEASE. Pt was given 1L IV NaCl. At 1021 Pt case was discussed with Dr. Ortiz, who will see the pt in the ER. At 1029 Dr. Ortiz recommended admission. At 1120 Dr. De Leon accepted the pt for admission. - Diagnoses Provider Diagnoses: Syncope, Bradycardia, sinus - Physician Notifications Discussed Care of Patient With: Narendra Ortiz Time Discussed With Above Provider: 10:21 Instructed by Provider To: Other - Pt case was discussed with Dr. Ortiz, who will see the pt in the ER. At 1029 Dr. Ortiz recommended admission. At 1120 Dr. De Leon accepted the pt for admission. Discharge ED - Sign-Out/Discharge Documenting (check all that apply): Patient Departure - admit - Discharge Plan Condition: Stable Disposition: ADMITTED TO [facility] Referrals: Ishaan Tay MD [Primary Care Provider] - - Billing Disposition and Condition Condition: STABLE Disposition: Admitted to [facility] - Attestation Statements Document Initiated by Todd: Yes Documenting Scribe: Jose Manuel Glez Provider For Whom Todd is Documenting (Include Credential): Teddy Pelletier DO Scribe Attestation: Jose Manuel Lozano scribed for Teddy Pelletier DO on 07/07/19 at 1245. Scribe Documentation Reviewed: Yes Provider Attestation: The documentation as recorded by the kevibadolph, Jose Manuel Glez accurately reflects the service I personally performed and the decisions made by Teddy bryant DO Status of Scribadolph Document: Viewed
[2019-07-07] MEDS ORDERED: NS 0.9% 1000 ML** 1,000 ML IV ONE (10:18)
[2019-07-07 10:45] LABS: ABS Basophils 0.1 10^3/ul (0-0.2); ABS Eosinophils 0.1 10^3/ul (0-0.6); ABS Lymphocytes 1.7 10^3/ul (1.0-4.8); ABS Monocytes 0.7 10^3/ul (0-0.8); ABS Neutrophils 5.9 10^3/ul (1.5-7.7); Eosinophil % 1.3 %; Hematocrit 44 % (42-52); Hemoglobin 14.7 g/dL (14.0-18.0); Lymphocyte % 19.6 %; Mean Corpuscular HGB Conc 34 g/dL (31-36); Mean Corpuscular Hemoglobin 29 pg (27-31); Mean Corpuscular Volume 87 fL (80-94); Mean Platelet Volume 9.3 fL (7.4-10.4); Platelet Count 192 10^3/uL (150-450); Red Blood Count 4.99 10^6 /uL (4.18-5.48); Red Cell Distribution Width 15 % (10-15); White Blood Count 8.4 10^3/uL (3.5-10.8)
[2019-07-07 11:02] LABS: Albumin 4.3 g/dL (3.2-5.2); Albumin/Globulin Ratio 1.5 (1-3); BUN/Creatinine Ratio 17.2 (8-20); Calcium 9.3 mg/dL (8.6-10.3); EGFR African American 58.1 (>60); Globulin 2.8 g/dL (2-4); Potassium 4.5 mmol/L (3.5-5.0); Total Bilirubin 0.7 mg/dL (0.2-1.0); Total Protein 7.1 g/dL (6.4-8.9)
[2019-07-07 11:04] LABS: Troponin I 0.01 ng/mL (<0.03)
[2019-07-07] MEDS ORDERED: Acetaminophen TAB* 325 MG PO PRN (12:30)
--- NOTE | 2019-07-07 13:53 | HP ---
CC: Dr. Tay; Dr. Ortiz, Cardiology * HISTORY AND PHYSICAL: DATE OF ADMISSION: 07/07/19 PRIMARY CARE PROVIDER: Dr. Tay. CHIEF COMPLAINT: Passing out. HISTORY OF PRESENT ILLNESS: Christopher Jorgensen is a 69-year-old male with history of recent coronary artery bypass grafting that was a 6-vessel bypass in April of 2019. Post surgery, the patient was placed on a new medication metoprolol and his Lipitor dose was increased. He stated that he had been doing okay until approximately 2 weeks ago when he had an episode where he has gotten lightheaded when he was walking up the stairs. He also stated that yesterday when he was in a hot tub he was walking out of it and he also felt lightheaded. Today, he was standing in a restorationist and at the end of the service he started feeling hot, clammy/diaphoretic and lightheaded. Subsequently, he lowered himself to the restorationist pew, he sat down and passed out for a few seconds. When he came about, he saw people standing over him and asking if he is okay and then he passed out a couple more times when he was sitting up in a restorationist pew. He stated that he did not have any chest pain or shortness of breath. When he came into the emergency department, his heart rate was noted to be in the 40s. He likely has symptomatic bradycardia and he is going to be placed on overnight observation with a diagnosis of syncope and bradycardia. PAST MEDICAL HISTORY: 1. Six-vessel coronary artery bypass grafting in April of 2019. 2. Hypertension. 3. Hyperlipidemia. 4. Gastroesophageal reflux disease. 5. History of hiatal hernia. 6. BPH. 7. Obstructive sleep apnea for which the patient uses a mouth guard. 8. Chronic kidney disease, stage 3, with creatinine baseline around 1.4 to 1.5. MEDICATIONS AT HOME: Include: 1. Aspirin 81 mg daily. 2. Glucosamine/chondroitin 1 tablet b.i.d. 3. Flomax 0.4 mg daily. 4. Omeprazole 20 mg daily. 5. Metoprolol tartrate 25 mg b.i.d. 6. Atorvastatin 80 mg daily. 7. Hydrochlorothiazide 12.5 mg daily. 8. Lisinopril 5 mg daily. FAMILY HISTORY: Father at the age of 55 of sudden cardiac . His father's brother at the age of 52, also suddenly. His grandfather on father's side before the age of 60, also of sudden . His mother had multiple myeloma and in her 80s. 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 He drinks an occasional glass of alcoholic beverage a night. He has history of smoking for less than 10 years in the 1970s. His medical surrogate is his , Snow, who also is a line construction engineer. The patient is a full code. REVIEW OF SYSTEMS: Please see history of present illness. All the remaining 12 systems were reviewed with the patient and were otherwise negative, but apart from this the patient has stated that he is "at the end of the cold." He has had a cough for approximately a week and a half and he still has an occasional episode of "cough attack." He denies any shortness of breath or chest pain. He complains of sore throat that is getting better. His had also been sick. All the remaining 12 systems were reviewed and were otherwise negative. PHYSICAL EXAMINATION GENERAL: The patient is a very pleasant 69-year-old male, who is in no acute distress. The patient is alert and oriented x3. VITAL SIGNS: Blood pressure of 132/78, heart rate of 52 and regular, respiratory rate 12, oxygen saturation 99% on room air, temperature 97.5. HEENT: Head: Atraumatic, normocephalic. Eyes: Pupils are equal, reactive to light and accommodation. Oropharynx is clear. Mucosa moist. NECK: Supple. No JVD. No bruits bilaterally. RESPIRATORY: Scant rhonchi at left lower lung, otherwise clear. CARDIOVASCULAR: Regular rate and rhythm. No murmur. ABDOMEN: Soft, nontender. Bowel sounds present in all 4 quadrants. EXTREMITIES: There is no edema. Pulses are +2 bilaterally. No clubbing or cyanosis. NEUROLOGIC: Speech is clear. Cranial nerves II through XII grossly intact. Motor strength is 5/5 bilaterally. DIAGNOSTIC STUDIES/LAB DATA: White blood cell count 8.4, hemoglobin 14.7, hematocrit 44, and platelets 192. Sodium was 136, potassium 4.5, chloride 102, carbon dioxide 30, BUN 25, creatinine 1.45. Liver function tests unremarkable. Troponin of 0.01. The patient's portable chest x-ray was unremarkable and read by the radiologist. 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 ASSESSMENT AND PLAN: 1. The patient has had recurrent episodes of syncope today. At this point, his orthostatic systolic pressure went down from 145/75 when lying down to 132/ 78 when standing. That measurement was performed after he received 1 L of intravenous hydration. I suspect he may be slightly orthostatic, but he also has likely symptomatic bradycardia. He is going to be placed on overnight observation on telemetry monitored bed. His troponins are going to be continued to be checked. His beta-sarah is going to be held. I suspect that if the patient's heart rate is improved tomorrow, he will likely be discharged without beta-blockers on board. 2. The patient's code status is full. His surrogate is his . 3. For DVT prophylaxis, the patient is going to be placed on heparin subcutaneously. 4. In regards to the patient's hypertension management, the patient currently is normotensive, his hydrochlorothiazide is going to be held, he is going to be continued on lisinopril, his metoprolol is going to be held as above. TIME SPENT: Approximately 65 minutes was spent on admission of this patient, more than half that time was spent [id number] with the patient during the interview and physical exam. [id number]/[facility] #: [id number] MOMO
[2019-07-07] MEDS: Heparin VIAL(*) 5000 UNITS/ML VIAL (FIVE THOUSAND) SUBCUT SCH ×2 (14:12→21:48)
[2019-07-07] MEDS ORDERED: Atorvastatin* 80 MG TAB PO SCH (21:00)
[2019-07-07] MEDS ORDERED: Benzocaine/Menthol LOZ* 1 LOZENGE PO PRN (22:56)
[2019-07-08] MEDS: Heparin VIAL(*) 5000 UNITS/ML VIAL (FIVE THOUSAND) SUBCUT SCH (05:17)
[2019-07-08] MEDS ORDERED: Tamsulosin CAP* 0.4 MG PO SCH (09:00)
[2019-07-08] MEDS ORDERED: Lisinopril TAB* 5 MG PO SCH (09:00)
[2019-07-08] MEDS ORDERED: Pantoprazole TAB * 40 MG TAB PO SCH (09:00)
[2019-07-08] MEDS ORDERED: Hydrochlorothiazide TAB* 25 MG PO SCH (09:00)
[2019-07-08] MEDS ORDERED: Aspirin 81 mg CHEW TAB* 81 MG TAB.CHEW PO SCH (09:00)
[2019-07-08] MEDS ORDERED: Lisinopril TAB* 5 MG PO ONE (09:11)
[2019-07-08 10:57] VITALS: BP 154/79
--- NOTE | 2019-07-08 12:03 | DS ---
CC: Dr. Tay; Dr. Ortiz * DISCHARGE SUMMARY: DATE OF ADMISSION: 07/07/19 DATE OF DISCHARGE: 07/08/19 PRIMARY CARE PROVIDER: Dr. Tay. MRI MANAGER: Dr. Ortiz. DISPOSITION ON DISCHARGE: Home. CONDITION ON DISCHARGE: Stable. DISCHARGE DIAGNOSES: 1. Syncope. 2. Bradycardia. MEDICATIONS AT DISCHARGE: Include new dose of lisinopril increased at 10 mg daily. The remaining medications include: 1. Aspirin 81 mg daily. 2. Lipitor 80 mg daily. 3. Glucosamine/chondroitin 1 tablet b.i.d. 4. Prilosec 20 mg daily. 5. Flomax 0.4 mg daily. Discontinued medications include: 1. Hydrochlorothiazide. 2. Metoprolol. CONSULTATIONS DURING HOSPITAL STAY: Includes Dr. Ortiz from Cardiology. HOSPITALIZATION COURSE: Christopher Jorgensen is a 69-year-old male who presented after recurrent episodes of syncope at [facility]. The patient was noted to be bradycardiac with a heart rate into the 40s on admission. His beta-sarah was discontinued. At this point, cardiology team was consulted. It is difficult to find out if the patient actually had syncope due to symptomatic bradycardia or was it partially vasovagal. The patient's hydrochlorothiazide was recommended to be discontinued also and his lisinopril was increased to 10 mg daily. The patient is recommended to follow up with his primary care provider in approximately 4 to 7 days. The patient also recommended to follow up with Dr. Narendra Ortiz on 07/26/[address] Mackey's office is going to call the patient to set up an appointment for [facility]. PHYSICAL EXAMINATION: Physical exam at the time of discharge is unchanged from admission, apart from that the patient's dhillon rate currently is now in the 60s. Please note that this is a short summary of the patient's hospital stay, please refer to further medical records for details. [id number]/[facility] #: [id number] [facility]
--- NOTE | 2019-07-08 16:28 | CONS ---
CARDIOLOGY CONSULTATION DATE OF CONSULTATION: 07/08/2019. ATTENDING PHYSICIAN: Dr. Narendra Ortiz * (dictated by Laurel Gould NP). PRIMARY DIRECTOR OF MANUFACTURING OPERATIONS: Dr. Narendra Ortiz. PRIMARY CARE PHYSICIAN: Dr. Ishaan Tay. CHIEF COMPLAINT: Bradycardia syncope. HISTORY OF PRESENT ILLNESS: This is a pleasant, 69-year-old male patient who saw Dr. 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 The patient states that after his bypass in April of 2019, he was clinically doing well. His would take his blood pressure twice a day and it was consistently less than 130/80, thus they stopped doing blood pressure checks at home. Approximately three to four weeks ago, he started to notice positional lightheadedness. He states that an episode occurred about three to four weeks ago after sitting for a prolonged period of time at a [employer] game, he stood up and walked up a set of stairs when he suddenly developed lightheadedness that eventually resolved within a short period of time. On Monday, around 8 o'clock in the morning, after getting out of the hot tub with position change he developed lightheadedness and actually had to put his head between his knees and the episode resolved. Blood pressure at that time was 120/60, heart rate was in the 50s per his . He has noted at cardiac rehab that his blood pressure systolic resting has been between 144 and 162 with a resting heart rate between 56 and 62. He adds that his blood pressure has been consistently becoming more elevated that it has in the past; however, in the evening hours it tends to be lower systolic of 130s. He states that he has not had hypotensive readings, but again has noted positional lightheadedness with sudden position change from sitting to standing. Yesterday morning while at [employer] around 9:30, the patient was standing, singing when he states that he suddenly developed lightheadedness, diaphoresis, facial flushing with tunnelled vision. He states that he remembers attempting to sit down. According to his , Snow, who was present at the time, she states that he did lose postural tone and was unconscious for a brief period of time. The patient was then able to be aroused and had to subsequent syncopal episodes. There was apparently two or three registered nurses present at this time and the patient was told that his heart rate was in the 40s while being evaluated in the emergency department. ECG revealed sinus bradycardia, rate of 50, no acute ST segment changes appreciated. According to the admission history and physical, his heart rate was noted to be in the 40s in the emergency department when he arrived. In the past, the patient admits to episodes of syncope occurring with blood draws in addition to the smell of cautery during the prior procedure. He was not able to appreciate any predisposing provocable factor for yesterday's episode, such as coughing, straining, abnormal smell, or sight of blood. He denies chest pain, denies palpitations, denies shortness of breath, and offers no further complaints. He has not recurrent symptoms since presentation. Last echocardiogram was 06/25/2019 per report. LVF was 55 to 60 percent, normal diastolic filling pattern, normal aortic valve, trace mitral and insufficiency. Last ischemic evaluation was 06/28/2019 via exercise nuclear stress test. Per report, the patient had a blunted heart rate response secondary to medication. Please note, the patient was on beta sarah at the time of treadmill portion. Normal blood pressure response. No chest pain. No arrhythmias. No inducible ischemia by ECG criteria. Normal perfusion. Normal TID index at 0.76. Resting EF 46 percent, stress EF 54 percent. He only was able to achieve 57 percent of maximum predicted heart rate on beta sarah therapy. PAST MEDICAL HISTORY: 1. Chronic kidney disease. 2. Coronary artery disease. 3. Hypertension. 4. GERD. 5. Hyperlipidemia. 6. Obstructive sleep apnea. 7. BPH. 8. Hiatal hernia. 9. 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 10. Vasovagal syncope in the past. PAST SURGICAL HISTORY: 1. CABG times six April of 2019 (SALVADOR to LAD, endoscopic greater saphenous vein harvesting, left GSV to marginal, marginal, diagonal, diagonal in sequence , GSV to diagonal). 2. Hernia repair. HOME MEDICATIONS: 1. Aspirin 81 mg a day. 2. Flomax 0.4 mg a day. 3. Lopressor 25 mg p.o. b.i.d. 4. Lipitor 80 mg p.o. at bedtime. 5. HCTZ 12.5 mg a day. 6. Lisinopril 5 mg a day. 7. Prilosec 20 mg a day. 8. Obstructive sleep apnea, dental appliance. ALLERGIES: NITROGLYCERIN WHICH APPARENTLY CAUSED HYPOTENSION AND NEAR SYNCOPE AT THE TIME OF HIS ID. FAMILY HISTORY: Positive for premature cardiovascular disease in first degree relatives. SOCIAL HISTORY: The patient is . Lives at his home with his . 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 He drinks alcohol socially. He denies illegal drug use. Former tobacco user. He smoked for a total of ten years in the 1970s and has not consumed tobacco products since. In regards to activity, he is currently participating in cardiac rehab, in addition to walking a mile three or four times a week with no exertional symptoms. REVIEW OF SYSTEMS: All systems have been reviewed and are otherwise negative except for above mentioned in HPI. PHYSICAL EXAM: General: The patient is sitting upright in bed with Snow at bedside, appears in no apparent distress, is cooperative with examination, alert and oriented times three, in no apparent distress. Current Vital Signs: Temperature 98.5, pulse 59, respirations 16, oxygenation 98 percent on room air , blood pressure 151/75. HEENT: Head is atraumatic, normocephalic. Oral mucosa is moist. Tongue is midline. Cardiac: Normal S1, S2. Regular rate and rhythm. No murmur, rub or gallop noted. Lungs: Auscultated posteriorly. No evidence of adventitious breath sounds. Respirations are nonlabored. /GI : Abdomen is soft, nontender, nondistended. No abdominal bruit noted. No hepatomegaly with palpation. Normoactive bowel sounds times four. Extremities : No pedal edema, no clubbing, no cyanosis. Peripheral Vascular: 2+ brachial and 3+ dorsalis pedis pulses palpated bilaterally and symmetrically. Skin: Intact. No evidence of jaundice, rashes, or ecchymosis appreciated. DIAGNOSTIC STUDIES/LAB DATA: Blood work obtained 07/07/2019: White count 8.4, hemoglobin 14.7, hematocrit 44, platelets 192; sodium 136, potassium 4.5, BUN 25 , creatinine 1.45, troponin negative times three, glucose 126. ECG from 07/07/2019, reviewed: Sinus bradycardia, heart rate 50 with known inferior Q-waves consistent with prior infarct, no ST segment elevation or depression appreciated. Telemetry reviewed. Sinus rhythm, rates 55 to 65 with occasional VPC's, no pauses noted. Chest x-ray, 07/07/2019: No active cardiopulmonary disease noted. ASSESSMENT AND PLAN: 1. Syncope: Symptomatology seems consistent with vasovagal syncope. However, I was not able to delineate provocable cause. It the past it was provoked by having blood drawn and the smell of cautery. The patient was bradycardic after episode and had chronotropic insufficiency on beta sarah therapy noted on his 06/28/2019 exercise nuclear stress test which was low risk. Agree with discontinuing beta sarah therapy and HCTZ therapy. He has also been experiencing what sounds like orthostatic hypotension occurring with sudden position change as noted above in HPI. He does not appear to be volume contracted and serum creatinine is reflective of baseline. At this current time , we will increase Lisinopril to 10 mg a day given uncontrolled hypertension. The patient was asked to follow-up with Dr. Narendra Ortiz on 07/26/2019 and is to have an updated 24 hour Holter monitor on 07/17/2019. Given he has resistant hypertension requiring three agents, will order outpatient renal duplex to rule out renal artery stenosis, although there is no noted abdominal bruit noted on examination. I encourage adequate hydration and although he has hypertension, I would suggest that he increase his salt intake slightly. There has not been any notable episodes of bradycardia or pauses noted on telemetry since discontinuation of Metoprolol therapy. He is stable for discharge and again follow-up close in our practice on the 25 of July. Please note that troponin was negative times three. No ischemic ECG changes were noted. He had a normal exercise nuclear stress test on June 28 as mentioned above. 2. History of coronary artery disease with bypass times six, April of 2019 due to non Q-wave ID. Recent exercise nuclear stress test low risk. He did have notable chronotropic insufficiency; however, this was likely related to beta sarah therapy on aspirin and statin therapy. Will discontinue beta blockage therapy due to bradycardia noted after syncopal episode on 07/07/2019. 3. History of hypertension. Now off HCTZ and Lopressor therapy. Will increase Lisinopril to 10 mg a day. Blood pressure goals less than 130/80 given slight dilatation involving ascending aorta. Will order outpatient abdominal duplex to rule out renal artery stenosis. Please note there is not a renal artery bruit noted on examination; however, given he has been requiring more than three agents for hypertension management and has a history of vascular disease, it seems reasonable to rule renal artery stenosis out. 4. History of hyperlipidemia. On Atorvastatin therapy. Goal LDL is less than 70 given history of coronary artery disease 5. Disposition pending course. Will sign off. Patient full code. I spoke with Dr. Narendra Ortiz who agrees with the above assessment and plan. LAUREL GOULD NP [id number]/ANDREA #: [id number] MOMO
[2019-07-09] MEDS ORDERED: Lisinopril TAB* 5 MG PO SCH (09:00)
== END 2019-07-08 10:45 | disposition home or self-care (01) ==
LOC: ED 10:03 → MEDTELE 12:30
PROVIDERS: ADMIT Internal Medicine; ATTEND Internal Medicine
DX: R55 Syncope and collapse (principal); R00.1 Bradycardia, unspecified; Z79.82 Long term (current) use of aspirin; Z79.899 Other long term (current) drug therapy; Z95.1 Presence of aortocoronary bypass graft; E78.5 Hyperlipidemia, unspecified; I12.9 Hypertensive chronic kidney disease with stage 1 through stage 4 chronic kidney disease, or unspecified chronic kidney disease; N18.3 Chronic kidney disease, stage 3 (moderate); G47.33 Obstructive sleep apnea (adult) (pediatric); K21.9 Gastro-esophageal reflux disease without esophagitis; K44.9 Diaphragmatic hernia without obstruction or gangrene; N40.0 Benign prostatic hyperplasia without lower urinary tract symptoms; Z87.891 Personal history of nicotine dependence; Z88.8 Allergy status to other drugs, medicaments and biological substances; I25.2 Old myocardial infarction; I25.10 Atherosclerotic heart disease of native coronary artery without angina pectoris
CPT/HCPCS: 36415; 71045; 80053; 83735; 84484; 85025; 93005; 96360; 96361; 96372; 99284; A9270-GY; G0378; J1644

== ENCOUNTER 2023-09-07 08:07 | Observation (INO) ==
[~2023-09-07 08:07] MED LIST: Dexamethasone IV 4 MG/ML VIAL 1 ml VIAL ONE; Lidocaine 2% PF 5 ML VIAL ONE; Midazolam 2 mg/2 ml VIAL 1 mg/ml 2 ml VIAL (2 mg) ONE; Naloxone 0.4 mg VIAL 0.4 mg/ml 1 ml VIAL IV PRN; Ondansetron 4 mg VIAL 2 MG/ML 2 ml VIAL IV PRN; Ondansetron 4 mg VIAL 2 MG/ML 2 ml VIAL ONE; Propofol 10 MG/ML 20 ML BTL ONE; Rocuronium 50 mg VIAL 10 mg/ml 5 ml VIAL (50 mg) ONE; fentaNYL 100 mcg/2 ml 50 MCG/ML VIAL IV PRN; fentaNYL 100 mcg/2 ml 50 MCG/ML VIAL ONE
[2023-09-07] MEDS ORDERED: ROPIVACAINE 5 MG/ML 30 ML BTL (0.5%) ONE ×2 (08:08→08:18)
[2023-09-07] MEDS ORDERED: Bupivacaine 0.5% PF 10 ML SDV VIAL INJ ONE (08:08)
[2023-09-07] MEDS ORDERED: ceFAZolin 2 GM PREMIX 2 GM/50 ML BAG ONE (08:19)
[2023-09-07 08:47] LABS: Rapid COVID-19 Molecular Undetected (Undetected)
[2023-09-07] MEDS ORDERED: Dexamethasone IV 4 MG/ML VIAL 1 ml VIAL ONE (09:38)
[2023-09-07] MEDS ORDERED: Tranexamic Acid 1 GM/100ML BAG 2,000 MG/200 ML BAG IV ONE (09:56)
[2023-09-07] MEDS ORDERED: KETAMINE HCL 10 MG/ML 20 ml VIAL (200 MG) ONE (10:20)
[2023-09-07] MEDS ORDERED: Glycopyrrolate IV 0.2 MG/ML 1 ML VIAL ONE (10:21)
[2023-09-07] MEDS ORDERED: Acetaminophen IV 1 GM/100ML 1,000 MG/100 ML BAG IV ONE (11:01)
[2023-09-07] MEDS ORDERED: Ondansetron ODT 4 mg TAB 4 MG TAB PO PRN (12:33)
[2023-09-07] MEDS ORDERED: Morphine 2 MG/ML SYRINGE IV PRN (12:33)
[2023-09-07] MEDS ORDERED: Magnesium Hydroxide LIQ 30 ML UDC PO PRN (12:33)
[2023-09-07] MEDS ORDERED: Ondansetron 4 mg VIAL 2 MG/ML 2 ml VIAL IV PRN (12:33)
[2023-09-07] MEDS ORDERED: Lactulose 30 ml UDC PO PRN (12:33)
[2023-09-07] MEDS: Lactated Ringers 1000 ml BAG 1,000 ML IV SCH ×2 (17:02→17:04)
[2023-09-07] MEDS: Buffered Lidocaine 1% SYRIN 1 ml INTRADERM ONE (17:04)
[2023-09-07] MEDS: ceFAZolin 1 GM ADVAN 1 GM in NS 0.9% 50 ML 50 ML IVPB SCH (18:30)
[2023-09-07] MEDS: Magnesium Hydroxide LIQ 30 ML UDC PO SCH (21:17)
[2023-09-08 05:43] LABS: Hematocrit 39.2 % (38-53); Hemoglobin 13.1 g/dL (13.2-16.3); Mean Platelet Volume 8.5 fL (7.5-11.2); Platelet Count 218 10^3/uL (150-450)
[2023-09-08 06:12] LABS: Calcium 8.9 mg/dL (8.6-10.3); Creatinine, Serum 1.5 mg/dL (0.67-1.17); Potassium 5.2 mmol/L (3.5-5.0); eGFR CKD-EPI 48.3 (>60)
[2023-09-08] MEDS: Vitamin THERAPEUTIC TAB PO SCH (08:36)
[2023-09-08 09:37] VITALS: BP 136/69
== END 2023-09-08 12:35 | disposition home or self-care (01) ==
LOC: SSU 08:07 → OR 08:07
PROVIDERS: ADMIT Orthopaedic Surgery Adult Reconstructive Orthopaedic Surgery; ATTEND Orthopaedic Surgery Adult Reconstructive Orthopaedic Surgery